=== PATIENT | male | born 1960 | race Caucasian/White ===

== ENCOUNTER 2021-05-09 19:23 | Emergency (ER) | payer BC ==
[~2021-05-09] VITALS: Ht 170.2 cm; Wt 116.1 kg
[2021-05-09] MEDS ORDERED: ASPIRIN 81 MG CHEW TAB PO STA (19:34)
[2021-05-09] MEDS ORDERED: HYDROCODONE/APAP 5MG-325MG TAB PO ONE (19:45)
[2021-05-09 19:51] LABS: BASOPHILS # (AUTO) 0.1 (0.0-0.1); BASOPHILS % 0.6 % (0.0-1.0); EOSINOPHILS # (AUTO) 0.5 (0.0-0.4); EOSINOPHILS % 5.2 % (0.0-6.0); HEMATOCRIT 50.7 % (38.2-49.6); HEMOGLOBIN 16.6 g/dL (14.0-18.0); LYMPHOCYTES # (AUTO) 1.6 (1.0-3.2); LYMPHOCYTES % 18.1 % (18.0-39.1); MEAN CORPUSCULAR HGB CONC 32.7 g/dL (31-35); MEAN CORPUSCULAR VOLUME 88.5 fL (81-99); MONOCYTES # (AUTO) 0.7 (0.2-0.8); NEUTROPHILS % 67.7 % (38.7-80.0); PLATELET COUNT 286 x10e3/uL (140-360); RED BLOOD COUNT 5.73 x10e6/uL (4.3-5.7); RED CELL DISTRIBUTION WIDTH 12.9 % (11.7-14.4)
[2021-05-09 19:56] LABS: INR 0.99; PARTIAL THROMBOPLASTIN TIME 30.1 seconds (23.8-35.5); PROTHROMBIN TIME 13.8 seconds (11.9-14.5)
[2021-05-09 20:05] LABS: ALBUMIN/GLOBULIN RATIO 1.1 (0.8-2.0); ANION GAP 17.8 mmol/L (8-16); CALCIUM 9.2 mg/dL (8.4-10.2); CREATININE, SERUM 1.44 mg/dL (0.72-1.25); POTASSIUM 3.8 mmol/L (3.5-5.1)
[2021-05-09 20:12] LABS: CREATINE KINASE MB 0.8 ng/mL (0-5.0)
[2021-05-09] MEDS ORDERED: SODIUM CHLORIDE 0.9% 1000ML 1,000 ML IV STA (20:44)
[2021-05-09] MEDS: NITROGLYCERIN 2% OINT 1 GM PKT TOP STA ×2 (20:52→21:01)
[2021-05-09] MEDS ORDERED: SODIUM CHLORIDE 0.9% 50ML 50 ML ONE (21:02)
[2021-05-09] MEDS ORDERED: IOPAMIDOL 370 MG/ML 200 ML INFUS..BTL INJ ONE (21:02)
[2021-05-09] MEDS ORDERED: CEFTRIAXONE 1 GM in SODIUM CHLORIDE 0.9% 50ML 50 ML IV STA (22:51)
[2021-05-10] MEDS ORDERED: DOXYCYCLINE HY100 MG PO (00:58)
[2021-05-10] MEDS ORDERED: PREDNISONE50 MG PO (00:58)
[2021-05-10] MEDS ORDERED: VENTOLIN HFA18 GM INH (01:04)
[2021-05-10 02:27] VITALS: BP 126/73
== END 2021-05-10 01:30 | disposition home or self-care (01) ==
LOC: ER 19:44
DX: J18.9 Pneumonia, unspecified organism (principal); R07.89 Other chest pain; R06.00 Dyspnea, unspecified; R73.9 Hyperglycemia, unspecified; I10 Essential (primary) hypertension; Z20.822 Contact with and (suspected) exposure to COVID-19
CPT/HCPCS: 36415; 71260; 80053; 82550; 82553; 83880; 84484; 85025; 85610; 85730; 93005; 99284; J0456; J0696; J7030; J7050; Q9967; U0002